=== PATIENT | female | born 1980 | race Caucasian/White ===

== ENCOUNTER → 2016-10-05 | Outpatient (CLI) | payer BC | LOC: MOB LAB 08:56 | PROVIDERS: ATTEND Obstetrics & Gynecology | DX: N92.0 Excessive and frequent menstruation with regular cycle (principal) | CPT/HCPCS: 36415; 84443 ==

== ENCOUNTER → 2016-10-10 | Outpatient (CLI) | payer BC ==
--- NOTE | 2016-10-10 09:49 | DI ---
PELVIC ULTRASOUND, 10/10/2016 8:27 AM Clinical History: Menorrhagia with regular cycles. Previous Exam: None at this facility. Technique: Transabdominal and transvaginal scans are performed. The uterus measures approximately 60 x 70 x 95 mm and has a normal sonographic appearance. Prominent vessels are noted around the perimeter of the uterus. The central uterine stripe is thickened and michael sures 15 mm. The ovaries are normal and demonstrate vascular flow. There are no fluid collections or masses. Readin. Mild enlargement of the uterus without obvious abnormality of the myometrium. There is thickening of the surgery or in stripe at 15 mm. 2. The ovaries are normal.
== END ==
LOC: US 08:23
PROVIDERS: ATTEND Obstetrics & Gynecology
DX: N92.0 Excessive and frequent menstruation with regular cycle (principal)
CPT/HCPCS: 76830; 76856

== ENCOUNTER 2018-03-16 23:39 | Inpatient (IN) ==
[2018-03-17] MEDS ORDERED: Lactated Ringers-OB Dept 2,000 ML ONE (00:06)
[2018-03-17] MEDS: Lactated Ringers-OB Dept 1,000 ML PRIMARY IV SCH ×2 (00:40→06:43)
[2018-03-17] MEDS ORDERED: ONDANSETRON 4 MG/2 ML VIAL IVP PRN ×3 (01:37→09:18)
[2018-03-17] MEDS ORDERED: LIDOCAINE HCL 2 % 10 ML JELLY URO-JECT TOPICAL PRN (01:37)
[2018-03-17] MEDS ORDERED: FAMOTIDINE 20 MG/2 ML VIAL IVP PRN ×3 (01:37→09:18)
[2018-03-17] MEDS ORDERED: ePHEDrine Inj 5 MG in Normal Saline Flush 1 ML IVP PRN (01:37)
[2018-03-17] MEDS ORDERED: Metoclopramide Inj 10 MG/2 ML VIAL IV PRN (01:37)
[2018-03-17] MEDS ORDERED: CITRIC ACID/SODIUM CITRATE 30 ML CUP PO PRN (01:37)
[2018-03-17] MEDS ORDERED: CefOXitin Inj 2 GM in Sodium Chloride 0.9% 100 ML IV PRN (01:37)
[2018-03-17] MEDS ORDERED: OXYTOCIN 10 UNIT/1 ML IM PRN (01:37)
[2018-03-17] MEDS ORDERED: TERBUTALINE SULFATE 1 MG/1 ML SDV SUBCUT PRN (01:37)
[2018-03-17] MEDS ORDERED: NALOXONE 0.4 MG/1 ML VIAL IVP PRN (01:37)
[2018-03-17] MEDS ORDERED: MISOPROSTOL 200 MCG TABLET RECTAL PRN (01:37)
[2018-03-17] MEDS ORDERED: BUTORPHANOL TARTRATE 2 MG/1 ML VIAL IVP PRN ×2 (01:37→09:18)
[2018-03-17] MEDS ORDERED: METHYLERGONOVINE MALEATE 0.2 MG/1 ML VIAL IM PRN (01:37)
[2018-03-17] MEDS ORDERED: LIDOCAINE W/ SODIUM BICARB 0.5 ML SYR SUBD PRN ×2 (01:37→08:43)
[2018-03-17] MEDS ORDERED: diphenhydrAMINE 50 MG/1 ML VIAL IVP PRN (01:37)
[2018-03-17] MEDS ORDERED: Lidocaine 1% 10 MG/ML - 20 ML VIAL SUBCUT PRN (01:37)
[2018-03-17] MEDS ORDERED: Nalbuphine Inj 20 MG/ML Ampule IVP PRN ×2 (01:37→09:18)
[2018-03-17] MEDS ORDERED: Phenylephrine Inj 50 MCG in Normal Saline Flush 0.5 ML IVP PRN (01:37)
[2018-03-17] MEDS ORDERED: CALCIUM CARBONATE 500 MG (TUMS) CHEWABLE TABLET PO PRN ×2 (01:37→09:18)
[2018-03-17] MEDS ORDERED: fentaNYL Inj 100 MCG/2 ML VIAL IV PRN (01:37)
[2018-03-17] MEDS ORDERED: Carboprost Inj 250 MCG/ML AMP IM PRN (01:37)
[2018-03-17] MEDS ORDERED: Naloxone Inj 0.01 MG in Normal Saline Flush 1 ML IVP PRN (01:37)
[2018-03-17] MEDS ORDERED: Oxytocin 20 Units + LR 20 UNIT/1,000 ML BAG IV SCH ×2 (01:45→09:18)
[2018-03-17 01:47] LABS: Hemoglobin [HGB] 10.8 g/dL (12.0-16.0); MEAN CORPUSCULAR HEMOGLOBIN 27.5 PG (27-31); MEAN CORPUSCULAR HGB CONC 33.8 g/dL (33-37); MEAN CORPUSCULAR VOLUME 81.4 FL (81-99); MEAN PLATELET VOLUME 9.7 FL (7.4-12.2); RED BLOOD COUNT 3.93 10^6/uL (4.20-5.40)
[2018-03-17] MEDS ORDERED: ePHEDrine Inj 50 MG/ML AMP ONE (07:16)
[2018-03-17] MEDS ORDERED: AZITHROMYCIN 500 MG VIAL IV ONE (07:20)
[2018-03-17] MEDS ORDERED: Lactated Ringers 2,000 ML PRIMARY IV ONE (07:31)
--- NOTE | 2018-03-17 07:37 | OB.PROGRES ---
Date of Service: 03/17/18 Time of Service: 06:42 Interval History: 37 yo at 37 0/7 weeks gestation presented with PPROM late last night. At about 2330 she awoke from sleep and was wet, went to the restroom and was still leaking. Then states when she got out of her car to come into the hospital had a big gush of fluids. Her initial SVE revealed her cervix to be 2/20/-4, thought to be vertex but not well engaged. Amnisure was positive. She was allowed to labor expectantly. At 0230 her cervix had changed to 3/30/-3. When rechecked at around 0500 she had not changed and the head again felt like it wasn't well engaged. Different positional maneuvers were tried. Toone wasn't picking contractions up well and she did have a couple of decels. I was called with an update and came in to assess for IUPC placement, possible amnioinfusion. I first did an informal u/s to assess if baby was OP, but found baby to be breech. Given the ROM I did not think she was a good candidate for ECV. We discussed risks/benefits of both ECV and primary LTCS as well as BTL. Patient's ended up passing out during the description of the procedure. complicated by Preeclampsia - she had 2 blood pressures >140 systolic documented in February and a 24 hour urine protein last week >500mg. BPs mildly elevated upon arrival, no GUTIERREZ, vision changes, RUQ pain. Threatened labor - did get a course of steroids a couple of weeks ago. AMA, grandmultip. Normal cell free dna screening. Severe GERD during . PMH - GERD, h/o nephrolithiasis, Tietze's disease, hemorrhoids PSH - EGD, colonoscopy, LEEP FH - Father - T2DM, Depression, HTN Mother - Depression, HTN Daughters/Sons - ADHD, allergic rhinitis SH - never smoker, no etoh, no illicit drug use Objective - Cervical Exam Cervical Exam: 10/05/-3 Toone: hard to scrap picker Heart Rate: baseline 125, mod variability, +accels, variable decels - one to the 80s that took a couple of minutes to recover Heart Rate Interpretation Category: Category II - Labs CBC and BMP: 03/17/18 00:15 - Vital Signs Last Taken Vital Signs: Vital Signs - Last Taken Temperature 98.5 F 03/17/18 03:00 Pulse Rate 70 03/17/18 05:00 Respiratory Rate 20 03/17/18 03:00 Blood Pressure 131/89 03/17/18 05:00 Pulse Ox 98 03/17/18 05:00 Assessment and Plan - Patient Problems (1) premature rupture of membranes (PPROM) with onset of labor after 24 hours of rupture in first trimester, antepartum Current Visit: Yes Status: Acute Code(s): O42.111 - premature rupture of membranes, onset of labor more than 24 hours following rupture, first trimester (2) Advanced maternal age during in third trimester Current Visit: Yes Status: Acute (3) Breech presentation of fetus Current Visit: Yes Status: Acute Code(s): O32.1XX0 - Maternal care for breech presentation, not applicable or unspecified (4) Grand multipara Current Visit: No Status: Acute Code(s): Z64.1 - Problems related to multiparity Support Text: 37 yo at 37 0/7 weeks gestation with PPROM, breech. Patient has consented to proceed with primary LTCS, we will proceed to the OR. She did sign a consent for BTL, but after further discussion with her has opted not to proceed with BTL. OR crec contacted, Dr. Overton to assist, Dr. Garcia will be present for care of the baby.
[2018-03-17] MEDS ORDERED: ONDANSETRON 4 MG/2 ML VIAL ONE (07:38)
--- NOTE | 2018-03-17 08:06 | DI ---
EXAM: US Uterus, Limited CLINICAL HISTORY: 37-year-old female; evaluate position. TECHNIQUE: Real-time ultrasound of the maternal uterus (limited) with image documentation. COMPARISON: 03/15/2018, 03/08/2018. FINDINGS: There is a single live intrauterine fetus in oblique breech presentation, with head in the left upper uterus. heart rate = 140 BPM. There is probable [id number] dilation/funneling of the internal cervical os on the single sagittal image of the cervix, incompletely evaluated. IMPRESSION: Single live intrauterine fetus in oblique breech presentation, with head in the left superior uterus.
[2018-03-17] MEDS ORDERED: MISOPROSTOL 200 MCG TABLET ONE ×2 (08:25→09:10)
--- NOTE | 2018-03-17 08:42 | CRNA.PROCE ---
Central Neuraxis Block Placemt - - Safety Measures: Time Out Taken, Site Verified - - Type of Block: Subarachnoid Reason for Block: Surgical Moniters Used During Block: EKG, SPO2, NIBP Positioning: Sitting Skin Prep Used: Betadine Skin Infiltration - Enter Amount Used in Comment Field: 1% Xylocaine (mL): Yes ( wheal) Spinal Needle Used: 25 Vishal 80 mm Local Anesthetic - Enter Amount Used in Comment Field: 0.75 % Bupivacaine with Dextrose (ml): Yes (15mg) Bioclusive Dressing Applied: No Anesthesia Time - Other Weight: 89.267 kg Height: 5 ft 9 in Body Mass Index (BMI): 29.0
--- NOTE | 2018-03-17 08:42 | CRNA.PROGR ---
Anesthesia Time - - Start date: 03/17/18 End date: 03/17/18 - Procedure/Recovery Time Anesthesia : Time In: 07:05 Anesthesia : Time Out: 08:34 Anesthesia : Total Time: 89 - Total Anesthesia Time Total Anesthesia Time (minutes): 89 - Other Weight: 89.267 kg Height: 5 ft 9 in Body Mass Index (BMI): 29.0 Physical Status: P2 Anesthesia Type: Spinal Block Obstetrics: C/S anesthesia only
[2018-03-17] MEDS ORDERED: fentaNYL Inj 100 MCG/2 ML VIAL IVP PRN (08:43)
--- NOTE | 2018-03-17 08:43 | CRNA.PROGR ---
Anesthesia Recovery Phase I - Post Anesthesia Evaluation Patient's Condition on Arrival in Phase I: Stable Pain Level: 0
--- NOTE | 2018-03-17 09:00 | OB.OP.NOTE ---
Operative Report - - Surgeon: Alex Hunt MD Tank House Operator Helper: Stefano Overton MD Anesthesia Type: Regional Anesthesia Provider: William Lee CRNA Surgery Date: 03/17/18 Preoperative Diagnosis: 37 week IUP, breech presentation Postoperative Diagnosis: Same as above. 5 lb 9.5 ozs early term AGA female infant, apgars 9,10. Normal uterus, fallopian tubes, ovaries Procedure: primary LTCS Complications: none apparent Estimated Blood Loss (mL): 900 Fluids: LR 1800 cc Indications: breech presentation, PPROM Findings: 37 yo G9 now P9 presented with PPROM late last night. She had been vertex on u/ s on Sunday and was thought to be vertex on exam at presentation. She was allowed to labor expectantly. She initially made some cervical change but then did not dilate between 230-530 am. She had a couple of variable and/or early decels (toco was not reliably picking up contractions). I came in to do assess for IUPC placement and found baby to be breech on u/s. Given rupture of membranes already I did not think she was a good candidate for ECV. Risks / benefits of ECV and section were discussed with patient and her and she consented to go to the OR for primary LTCS. Description of Procedure: The patient was taken to the operating room where spinal anesthesia was found to be adequate. She was then prepared and draped in the normal sterile fashion in the dorsal supine position with a leftward tilt. A Pfannenstiel skin incision was then made with the scalpel and carried through to the underlying layer of fascia with the Bovie and blunt dissection. The fascia was incised in the midline and the incision extended laterally with the Bovie. The superior aspect of the fascial incision was then grasped with the Michelle clamps, elevated , and the underlying rectus muscles dissected off bluntly. Attention was then turned to the inferior aspect of this incision which, in a similar fashion, was grasped with the Michelle clamps and the rectus muscles dissected off both bluntly and with the Bovie. The rectus muscle was then in the midline , and the peritoneum identified and entered digitally. The peritoneal incision was then extended superiorly and inferiorly with good visualization of the bladder. The Josiah retractor was then inserted and the vesicouterine peritoneum was identified. The lower uterine segment was incised in a transverse fashion with the scalpel. The uterine incision was then extended laterally in a blunt fashion. The infant's bottom was first delivered then R and L legs. The body and head were then delivered atraumatically. The nose and mouth were suctioned with the bulb suction and the cord clamped and cut. Delayed cord clamping was not completed as infant was cyanotic and did not cry initially. The was handed off to the awaiting nurse. Cord gases and cord blood were sent for analysis. The placenta was then removed manually; the uterus exteriorized, and cleared of all clots and debris. The uterus was quite boggy initially, so pitocin was pushed and she was also given 250 mcg hemabate. The uterine incision was repaired with 0 Vicryl in a running, locked fashion. A second layer of the same suture was used to embricate. A figure of eight with 0 Vicryl was uses at the L uterine corner to obtain excellent hemostasis. The peritoneal cavity was then copiously irrigated with warm saline. The uterus was returned to the abdomen. The paracolic gutters were copiously irrigated with warm saline and a second look at the uterine incision continued to reveal excellent hemostasis. The peritoneum was closed with 3-0 Vicryl. The fascia was reapproximated with 0 Vicryl in a running fashion first from the L corner past midline then from the R corner past midline. The subcutaneous space was irrigated copiously with warm saline and then closed first with 3-0 Vicryl and then more superficially with Insorb absorbable sutures. The skin was reapproximated with Steri-Strips and a Silverlon dressing applied. Fundal massage was completed with no clots in vaginal vault. 800 mcg of cytotec were given pr at that time. The patient tolerated the procedure well. Sponge, lap, and needle counts were correct x2. Mefoxin was given preoperatively less than one hour prior to incision time. The patient was taken to the recovery room in stable condition. Apgars 8,9.
[2018-03-17] MEDS ORDERED: diphenhydrAMINE 50 MG/1 ML VIAL IV PRN (09:18)
[2018-03-17] MEDS ORDERED: LANOLIN HPA 40 GM TUBE TOPICAL PRN (09:18)
[2018-03-17] MEDS ORDERED: MMR VACCINE 12500 UNIT/0.5 ML SUBCUT ONE (09:18)
[2018-03-17] MEDS ORDERED: D5-LR 1,000 ML PRIMARY IV SCH (09:18)
[2018-03-17] MEDS ORDERED: Naloxone Inj 0.01 MG, Sodium Chloride 0.9% vial 1 ML IVP PRN ×2 (09:18)
[2018-03-17] MEDS ORDERED: diphenhydrAMINE 25 MG CAPSULE PO PRN (09:18)
[2018-03-17] MEDS: KETOROLAC 15 MG/1 ML VIAL IVP SCH ×3 (10:04→21:28)
[2018-03-17] MEDS: oxyCODONE-ACETAMINOPHEN 5-325 TAB PO PRN ×4 (10:05→23:06)
[2018-03-18] MEDS: oxyCODONE-ACETAMINOPHEN 5-325 TAB PO PRN ×5 (03:18→20:38)
[2018-03-18] MEDS: KETOROLAC 15 MG/1 ML VIAL IVP SCH ×2 (03:18→09:14)
[2018-03-18 05:04] LABS: Hematocrit [HCT] 27.4 % (37.0-47.0); Hemoglobin [HGB] 8.7 g/dL (12.0-16.0); MEAN CORPUSCULAR HEMOGLOBIN 26.6 PG (27-31); MEAN CORPUSCULAR HGB CONC 31.8 g/dL (33-37); MEAN CORPUSCULAR VOLUME 83.8 FL (81-99); MEAN PLATELET VOLUME 9.5 FL (7.4-12.2); RED BLOOD COUNT 3.27 10^6/uL (4.20-5.40)
[2018-03-18 05:14] LABS: BLOOD UREA NITROGEN 5 mg/dL (7-22); SERUM ALBUMIN 2.7 g/dL (3.5-4.8); Uric Acid 4.9 mg/dl (2.5-7.0)
--- NOTE | 2018-03-18 08:43 | OB.PROGRES ---
Subjective Post Day: 1 Pain Management: PO Rodas Catheter: Yes Flatus: No Lochia Color: Rubra/Red Small 10-25 ml Diet: Regular Feeding Method: Exculsively Ambulating: Yes Concerns / Additional Information: No complaints this morning. States she is staying on top of pain meds and doing well. Objective - General General Appearance: POSITIVE: No Acute Distress, Cooperative - Cardiovacular Cardiovascular Exam: POSITIVE: RRR Edema: No Pedal Edema Extremities: Negative Adrián's - Bilaterally - Respiratory Respiratory Exam: POSITIVE: Clear to Auscultation - Bilaterally, Breathing Non Labored. NEGATIVE: Rales, Rhonci, Wheezes - Abdomen Bowel Sounds: Present Abdominal Wound Assessment: Silverlone Dressing - Fundus/Lochia/Perineum Uterus Consistency: Firm Uterus Position: POSITIVE: Below Umbilicus Lochia Amount: Small 10-25 ml Lochia Color: Rubra/Red Assesstment / Plan (1) premature rupture of membranes (PPROM) with onset of labor after 24 hours of rupture in first trimester, antepartum Current Visit: Yes Status: Acute (2) Advanced maternal age during in third trimester Current Visit: Yes Status: Acute (3) Breech presentation of fetus Current Visit: Yes Status: Acute (4) Grand multipara Current Visit: No Status: Acute Support Text: 37 yo G9 now P9, POD 1 s/p primary LTCS for breech presentation in setting of PPROM. -Breast feeding, infant is feeding for long periods but with long stretches in between. Has had problems with breast feeding in the past. -Pain well controlled with po meds -Mild postop anemia, will start po ferrous gluconate -Plan to d/c rodas, shower, ambulate today -Anticipate d/c in 24-48 hours
[2018-03-18] MEDS: Prenatal Multivitamin Tab 1 TAB TAB PO SCH (09:14)
[2018-03-18] MEDS: Senna/Docusate Tab 1 TAB TAB PO SCH ×2 (09:15→20:46)
[2018-03-18] MEDS: IBUPROFEN 800 MG TABLET PO PRN (19:49)
[2018-03-18] MEDS: FERROUS GLUCONATE 324 MG TABLET PO SCH (20:47)
[2018-03-19] MEDS: oxyCODONE-ACETAMINOPHEN 5-325 TAB PO PRN ×5 (01:21→21:16)
[2018-03-19] MEDS: IBUPROFEN 800 MG TABLET PO PRN ×3 (07:53→21:19)
--- NOTE | 2018-03-19 08:22 | OB.PROGRES ---
Subjective Post Day: 2 Pain Management: PO Chua Catheter: No Flatus: Yes Lochia Color: Rubra/Red Small 10-25 ml Diet: Regular Feeding Method: Exculsively Ambulating: Yes Concerns / Additional Information: No concerns Objective - General General Appearance: POSITIVE: No Acute Distress - Cardiovacular Cardiovascular Exam: POSITIVE: RRR Edema: No Pedal Edema Extremities: Negative Adrián's - Bilaterally - Respiratory Respiratory Exam: POSITIVE: Clear to Auscultation - Bilaterally, Breathing Non Labored - Abdomen Bowel Sounds: Present Abdominal Wound Assessment: Silverlone Dressing - Fundus/Lochia/Perineum Uterus Consistency: Firm Uterus Position: POSITIVE: Below Umbilicus Assesstment / Plan (1) premature rupture of membranes (PPROM) with onset of labor after 24 hours of rupture in first trimester, antepartum Current Visit: Yes Status: Acute (2) Advanced maternal age during in third trimester Current Visit: Yes Status: Acute (3) Breech presentation of fetus Current Visit: Yes Status: Acute (4) Grand multipara Current Visit: No Status: Acute Support Text: 37 yo G9 now P9, POD 2 s/p primary LTCS for breech presentation in setting of PPROM. -Breast feeding ok. -Pain well controlled with po meds -Mild postop anemia, po ferrous gluconate -Plan for vasectomy -D/c in the am
[2018-03-19] MEDS ORDERED: MMR VACCINE 12500 UNIT/0.5 ML SUBCUT ONE (09:00)
[2018-03-19] MEDS: Senna/Docusate Tab 1 TAB TAB PO SCH ×2 (09:43→21:17)
[2018-03-19] MEDS: Prenatal Multivitamin Tab 1 TAB TAB PO SCH (09:43)
[2018-03-19] MEDS: FERROUS GLUCONATE 324 MG TABLET PO SCH (09:45)
[2018-03-20] MEDS: oxyCODONE-ACETAMINOPHEN 5-325 TAB PO PRN ×2 (01:11→07:06)
[2018-03-20] MEDS: IBUPROFEN 800 MG TABLET PO PRN ×3 (07:06→22:58)
[2018-03-20] MEDS: Prenatal Multivitamin Tab 1 TAB TAB PO SCH (09:00)
[2018-03-20] MEDS: Senna/Docusate Tab 1 TAB TAB PO SCH ×2 (09:00→21:08)
[2018-03-20] MEDS: FERROUS GLUCONATE 324 MG TABLET PO SCH (09:00)
--- NOTE | 2018-03-20 09:10 | OB.PROGRES ---
Subjective Post Day: 3 Chua Catheter: No Flatus: Yes Lochia Color: Rubra/Red Small 10-25 ml Diet: Regular Feeding Method: Exculsively Ambulating: Yes Concerns / Additional Information: States she is doing well today, still working on breast feeding. Objective - General General Appearance: POSITIVE: No Acute Distress, Cooperative - Cardiovacular Cardiovascular Exam: POSITIVE: RRR Edema: No Pedal Edema Extremities: Negative Adrián's - Bilaterally - Respiratory Respiratory Exam: POSITIVE: Clear to Auscultation - Bilaterally, Breathing Non Labored. NEGATIVE: Rales, Rhonci, Wheezes - Abdomen Bowel Sounds: Present Abdominal Wound Assessment: Silverlone Dressing - Fundus/Lochia/Perineum Uterus Consistency: Firm Uterus Position: POSITIVE: Below Umbilicus Lochia Amount: Small 10-25 ml Assesstment / Plan (1) premature rupture of membranes (PPROM) with onset of labor after 24 hours of rupture in first trimester, antepartum Current Visit: Yes Status: Acute (2) Advanced maternal age during in third trimester Current Visit: Yes Status: Acute (3) Breech presentation of fetus Current Visit: Yes Status: Acute (4) Grand multipara Current Visit: No Status: Acute (5) Preeclampsia Current Visit: No Status: Acute Support Text: 37 yo G9 now P9, POD 3 s/p primary LTCS for breech presentation in setting of PPROM. -Breast feeding with some difficulty - working with closely. Baby was under lights yesterday and last night. -BP had been stable but up last night, then again this morning. This morning was before pain meds and she was a little distressed with feeding - so will recheck shortly. Low threshold to keep tonight if continued elevated pressures. May need to check gestational HTN panel as well if remain elevated. -Pain well controlled with po meds - I sent in Rxs in case she does go home today -Mild postop anemia, po ferrous gluconate -Plan for vasectomy -D/c pending blood pressure results
[2018-03-20] MEDS: ACETAMINOPHEN 325 MG TABLET PO PRN ×2 (13:53→21:07)
[2018-03-20 14:29] LABS: BILIRUBIN,URINE NEGATIVE (NEG); CLARITY,URINE CLEAR (CLEAR); COLOR,URINE YELLOW (Y); GLUCOSE, URINE (UA) NEGATIVE (NEG); OCCULT BLOOD,URINE LARGE (NEG); PH,URINE 6.5 (5.0-8.5); PROTEIN,URINE NEGATIVE (NEG); UROBILINOGEN,URINE 0.2 EU/dL (0.2)
[2018-03-20 14:36] LABS: RBC,URINE 20-30 /hpf; SQUAMOUS EPITHELIAL CELL,UR FEW; URINE SAMPLE TYPE CLEAN CATCH URINE
[2018-03-21] MEDS: ACETAMINOPHEN 325 MG TABLET PO PRN ×3 (06:56→21:01)
[2018-03-21] MEDS: IBUPROFEN 800 MG TABLET PO PRN ×3 (06:56→22:42)
--- NOTE | 2018-03-21 08:01 | OB.PROGRES ---
Subjective Post Day: 4 Pain Management: PO Chua Catheter: No Flatus: Yes Lochia Color: Rubra/Red Scant < 10 ml Diet: Regular Feeding Method: Exculsively Ambulating: Yes Concerns / Additional Information: GUTIERREZ resolved. No RUQ pain. Objective - General General Appearance: POSITIVE: No Acute Distress, Cooperative - Cardiovacular Cardiovascular Exam: POSITIVE: RRR Edema: No Pedal Edema Extremities: Negative Adrián's - Bilaterally - Respiratory Respiratory Exam: POSITIVE: Clear to Auscultation - Bilaterally - Abdomen Bowel Sounds: Present Abdominal Wound Assessment: Silverlone Dressing - Fundus/Lochia/Perineum Uterus Consistency: Firm Uterus Position: POSITIVE: Below Umbilicus Assesstment / Plan (1) premature rupture of membranes (PPROM) with onset of labor after 24 hours of rupture in first trimester, antepartum Current Visit: Yes Status: Acute (2) Advanced maternal age during in third trimester Current Visit: Yes Status: Acute (3) Breech presentation of fetus Current Visit: Yes Status: Acute (4) Grand multipara Current Visit: No Status: Acute (5) Preeclampsia Current Visit: No Status: Acute Support Text: 37 yo G9 now P9, POD 4 s/p primary LTCS for breech presentation in setting of PPROM. -Breast feeding with some difficulty - working with closely. -BP started elevating again within last 36 hour. Diastolic >90 last night around 1900 then not checked again overnight. BP 146/95. Gestational HTN panel drawn. Plan to start Nifedipine ER 30mg po if it remains elevated this morning. -Pain well controlled with tylenol and ibuprofen (doesn't like the way percocet makes her feel) - I sent in Rxs in case she does go home today -Mild postop anemia, po ferrous gluconate -Plan for vasectomy -Anticipate d/c tomorrow, will watch BPs closely through the day.
[2018-03-21 08:56] LABS: Hematocrit [HCT] 27.3 % (37.0-47.0); Hemoglobin [HGB] 8.6 g/dL (12.0-16.0); MEAN CORPUSCULAR HEMOGLOBIN 26.4 PG (27-31); MEAN CORPUSCULAR HGB CONC 31.5 g/dL (33-37); MEAN CORPUSCULAR VOLUME 83.7 FL (81-99); MEAN PLATELET VOLUME 9.5 FL (7.4-12.2); RED BLOOD COUNT 3.26 10^6/uL (4.20-5.40)
[2018-03-21 09:04] LABS: BLOOD UREA NITROGEN 6 mg/dL (7-22); SERUM ALBUMIN 2.7 g/dL (3.5-4.8); Uric Acid 4.8 mg/dl (2.5-7.0)
[2018-03-21] MEDS: FERROUS GLUCONATE 324 MG TABLET PO SCH (10:22)
[2018-03-21] MEDS: Prenatal Multivitamin Tab 1 TAB TAB PO SCH (10:27)
[2018-03-21] MEDS: Senna/Docusate Tab 1 TAB TAB PO SCH ×2 (10:27→21:03)
[2018-03-21] MEDS ORDERED: GLYCERIN/WITCH HAZEL 1 BOX TOPICAL PRN (10:44)
[2018-03-21] MEDS: NIFEdipine 30 MG ER 24H TABLET PO SCH (12:25)
[2018-03-22] MEDS: ACETAMINOPHEN 325 MG TABLET PO PRN ×2 (04:39→10:41)
[2018-03-22 05:56] LABS: Hematocrit [HCT] 30.7 % (37.0-47.0); Hemoglobin [HGB] 9.6 g/dL (12.0-16.0); MEAN CORPUSCULAR HEMOGLOBIN 26.2 PG (27-31); MEAN CORPUSCULAR HGB CONC 31.3 g/dL (33-37); MEAN CORPUSCULAR VOLUME 83.9 FL (81-99); MEAN PLATELET VOLUME 8.9 FL (7.4-12.2); RED BLOOD COUNT 3.66 10^6/uL (4.20-5.40)
[2018-03-22 06:12] LABS: BLOOD UREA NITROGEN 7 mg/dL (7-22); SERUM ALBUMIN 3.1 g/dL (3.5-4.8); Uric Acid 4.7 mg/dl (2.5-7.0)
[2018-03-22] MEDS: IBUPROFEN 800 MG TABLET PO PRN (07:04)
[2018-03-22 07:10] VITALS: TEMP 97.8
[2018-03-22 07:15] VITALS: BP 132/93; RESP 16; O2SAT 99
--- NOTE | 2018-03-22 08:30 | OB.PROGRES ---
Subjective Post Day: 5 Pain Management: PO Chua Catheter: No Flatus: Yes Lochia Color: Rubra/Red Small 10-25 ml Diet: Regular Feeding Method: Exculsively Ambulating: Yes Concerns / Additional Information: BPs stable on nifedipine. Labs stable as well. Will discharge to home to continue nifedipine and f/u with Dr. Hunt next week for BP check. Assesstment / Plan Assessment / Plan: POD 5. PP pre eclampsia does not appear to be worsening. Discharge to home on nifedipine. F/u with Dr. Hunt next week.
--- NOTE | 2018-03-22 08:35 | DCSUMMARY ---
Hospitalization Summary Admit Date: 03/17/18 Discharge Date: 03/22/18 Primary Diagnosis:: Term , delivered Secondary Diagnosis:: Breech presentation, PROM, pre eclampsia Primary Surgery and Date: LT 03/17/18 Delivery Type: Hospital Course: section for breech presentation was uncomplicated. Post op recovery was complicated by increased BP with mildly elevated LFTs. Pt. started on nefedipine and observed. She was discharged to home in stable condition on POD 5. / Postop Complications: PP pre eclampsia [place] Complications: None Exam - Vitals Vital Signs: Vital Signs Temperature 97.8 F Temperature Source Oral Pulse Rate [Apical] 80 Pulse Rate [Pulse Oximeter 79 Left] Pulse Rate 89 Respiratory Rate 16 Blood Pressure [Right Arm] 132/93 Blood Pressure 131/78 Pulse Ox 99 Oxygen Flow Rate RA Oxygen Delivery Method Room Air Height 5 ft 9 in Weight 196 lb 12.8 oz
[2018-03-22] MEDS: Prenatal Multivitamin Tab 1 TAB TAB PO SCH (10:03)
[2018-03-22] MEDS: Senna/Docusate Tab 1 TAB TAB PO SCH (10:04)
[2018-03-22] MEDS: FERROUS GLUCONATE 324 MG TABLET PO SCH (10:04)
[2018-03-22] MEDS: NIFEdipine 30 MG ER 24H TABLET PO SCH (10:04)
== END 2018-03-22 13:20 | disposition home or self-care (01) | DRG 766 ==
LOC: OBOP 23:39 → OBIP 03-17 00:44
PROVIDERS: ADMIT Student in an Organized Health Care Education/Training Program; ATTEND Student in an Organized Health Care Education/Training Program